=== PATIENT | female | born 1980 | race Caucasian/White ===

== ENCOUNTER 2024-05-09 17:30 | Inpatient (IN) | payer BC, OTHER ==
[~2024-05-09] VITALS: Ht 157.5 cm; Wt 84.7 kg
[2024-05-09 19:53] LABS: Basophils # (auto) 0.1 10 ^3/uL (0-0.2); Basophils % (auto) 0.5 % (0.0-2.0); Eosinophils # (auto) 0 10 ^3/uL (0-0.8); Eosinophils % (auto) 0.2 % (0.0-7.0); Hematocrit 41.4 % (36.0-46.0); Hemoglobin 13.6 g/dL (12.2-16.2); Lymphocytes # (auto) 2.6 10 ^3/uL (0.4-5.4); Lymphocytes % (auto) 21.5 % (10.0-50.0); Mean Corpuscular Hemoglobin 26.7 pg (28.0-32.0); Mean Corpuscular Hgb Conc. 32.7 g/dL (32.0-36.0); Mean Corpuscular Volume 81.7 fL (80.0-100.0); Monocytes # (auto) 0.8 10 ^3/uL (0-1.3); Monocytes % (auto) 6.6 % (0.0-12.0); Neutrophils # (auto) 8.7 10 ^3/uL (1.6-8.6); Neutrophils % (auto) 71.2 % (37.0-80.0); Red Blood Cells 5.07 10^6/uL (4.0-5.20); Red Cell Distribution Width 13.7 % (11.8-14.3); White Blood Cell 12.2 10^3/uL (4.4-10.8)
[2024-05-09 20:40] LABS: Alanine Aminotransferase 14 U/L (7-40); Albumin 4.5 g/dL (3.2-4.8); Alkaline Phosphatase 66 U/L (46-116); Anion Gap 9 (5-15); Aspartate Aminotransferase < 8 U/L (13-40); BUN/Creatinine Ratio 12.5 (10.0-20.0); Blood Urea Nitrogen 12 mg/dL (9-23); Calcium 9.8 mg/dL (8.7-10.4); Carbon Dioxide 22 mmol/L (20-30); Chloride 106 mmol/L (98-107); Glucose 104 mg/dL (74-106); Potassium 3.8 mmol/L (3.5-5.1); Sodium 137 mmol/L (136-145)
[2024-05-09 20:41] LABS: Bilirubin, Total 1.5 mg/dL (0.2-1.0)
[2024-05-09] MEDS: SODIUM CHLORIDE 0.9% 1,000 ML IV ONE (22:21)
[2024-05-09] MEDS ORDERED: CIPROFLOXACIN 400MG/200ML 200 ML IV ONE (22:30)
[2024-05-09] MEDS ORDERED: metroNIDAZOLE 500MG/100ML 100 ML IV ONE (22:30)
[2024-05-09] MEDS ORDERED: ACETAMINOPHEN 325 MG TAB PO PRN (22:30)
[2024-05-09] MEDS: PANTOPRAZOLE 40 MG/10 ML VIAL INJ IV ONE (23:00)
[2024-05-09] MEDS: metroNIDAZOLE 500MG/100ML 100 ML IV ONE (23:00)
[2024-05-09] MEDS: fentaNYL CITRATE 100 MCG/2 ML VL IV ONE (23:00)
[2024-05-10] VITALS (9 sets, daily range): BP systolic 114–129; BP diastolic 57–87; PULSE 70–83; RESP 16–18; TEMP 97.9–98.4; O2SAT 93–100
[2024-05-10] MEDS: CIPROFLOXACIN 400MG/200ML 200 ML IV ONE (00:26)
[2024-05-10] MEDS: MORPHINE SULFATE INJ 2 MG/ml SYRG IV PRN (02:36)
[2024-05-10] MEDS: HYDROcodone-ACET 5/325MG TAB PO PRN (06:14)
[2024-05-10] MEDS: metroNIDAZOLE 500MG/100ML 100 ML IV SCH ×2 (06:18→13:29)
[2024-05-10 06:26] LABS: Alanine Aminotransferase 10 U/L (7-40); Alkaline Phosphatase 57 U/L (46-116); Anion Gap 8 (5-15); BUN/Creatinine Ratio 7.5 (10.0-20.0); Bilirubin, Total 1.7 mg/dL (0.2-1.0); Blood Urea Nitrogen 6 mg/dL (9-23); Calcium 9.2 mg/dL (8.5-10.1); Carbon Dioxide 22 mmol/L (20-30); Chloride 107 mmol/L (98-107); Glucose 99 mg/dL (74-106); Potassium 3.6 mmol/L (3.5-5.1); Sodium 137 mmol/L (136-145); Total Protein 6.4 g/dL (5.7-8.2)
[2024-05-10 06:30] LABS: Aspartate Aminotransferase < 8 U/L (13-40); Basophils # (auto) 0 10 ^3/uL (0-0.2); Basophils % (auto) 0.2 % (0.0-2.0); Eosinophils # (auto) 0 10 ^3/uL (0-0.8); Eosinophils % (auto) 0.2 % (0.0-7.0); Hematocrit 36.4 % (36.0-46.0); Hemoglobin 12.1 g/dL (12.2-16.2); Lymphocytes % (auto) 22.4 % (10.0-50.0); Mean Corpuscular Hemoglobin 27.5 pg (28.0-32.0); Mean Corpuscular Hgb Conc. 33.3 g/dL (32.0-36.0); Mean Corpuscular Volume 82.7 fL (80.0-100.0); Monocytes # (auto) 0.7 10 ^3/uL (0-1.3); Monocytes % (auto) 7.7 % (0.0-12.0); Neutrophils # (auto) 6.2 10 ^3/uL (1.6-8.6); Neutrophils % (auto) 69.5 % (37.0-80.0); Red Cell Distribution Width 13.9 % (11.8-14.3); White Blood Cell 8.9 10^3/uL (4.4-10.8)
[2024-05-10] MEDS ORDERED: cefTRIAXone 1GM/50ML D5W 50 ML IV SCH (09:00)
[2024-05-10] MEDS: CIPROFLOXACIN 400MG/200ML 200 ML IV SCH (10:27)
[2024-05-10 13:00] LABS: Hepatitis B Surface Antigen Negative (Negative)
[2024-05-10 13:20] LABS: Hepatitis A Ab IgM Negative
[2024-05-10 13:21] LABS: Hepatitis B Core IgM Negative
[2024-05-10 13:22] LABS: Hepatitis C Antibody Negative (Negative)
[2024-05-10] MEDS: ONDANSETRON HCL 4 MG/2 ML VIAL IV PRN (13:34)
[2024-05-10 14:33] LABS: Urine Bacteria None Seen /hpf (None Seen); Urine Blood Negative /uL (Negative); Urine Clarity Clear (Clear); Urine Color Light-Orange (Yellow); Urine Mucus FEW (None Seen); Urine Protein, UAD TRACE (Negative); Urine Specific Gravity 1.024 (1.001-1.035); Urine Urobilinogen Normal (Negative); Urine WBC 1 /hpf (0 - 5)
[2024-05-10] MEDS: FAMOTIDINE (10MG/ML) 2ML VL IV SCH (21:46)
[2024-05-11] VITALS (8 sets, daily range): BP systolic 99–129; BP diastolic 54–86; PULSE 61–76; RESP 16–20; TEMP 97.8–98.3; O2SAT 93–99
[2024-05-11 07:51] LABS: Basophils # (auto) 0 10 ^3/uL (0-0.2); Basophils % (auto) 0.3 % (0.0-2.0); Eosinophils # (auto) 0.1 10 ^3/uL (0-0.8); Eosinophils % (auto) 0.9 % (0.0-7.0); Hematocrit 38.1 % (36.0-46.0); Hemoglobin 12.6 g/dL (12.2-16.2); Lymphocytes # (auto) 1.6 10 ^3/uL (0.4-5.4); Lymphocytes % (auto) 18.4 % (10.0-50.0); Mean Corpuscular Hemoglobin 27.2 pg (28.0-32.0); Mean Corpuscular Hgb Conc. 33.1 g/dL (32.0-36.0); Mean Corpuscular Volume 82.1 fL (80.0-100.0); Monocytes # (auto) 0.8 10 ^3/uL (0-1.3); Monocytes % (auto) 8.8 % (0.0-12.0); Neutrophils # (auto) 6.2 10 ^3/uL (1.6-8.6); Neutrophils % (auto) 71.6 % (37.0-80.0); Nucleated Red Blood Cells % 0.1 %; Red Blood Cells 4.63 10^6/uL (4.0-5.20); Red Cell Distribution Width 13.8 % (11.8-14.3); White Blood Cell 8.7 10^3/uL (4.4-10.8)
[2024-05-11 08:03] LABS: Chloride 105 mmol/L (98-107); Potassium 3.3 mmol/L (3.5-5.1); Sodium 138 mmol/L (136-145)
[2024-05-11 08:04] LABS: Anion Gap 9 (5-15); Calcium 9.3 mg/dL (8.5-10.1); Carbon Dioxide 24 mmol/L (20-30)
[2024-05-11 08:09] LABS: Glucose 92 mg/dL (74-106)
[2024-05-11 08:10] LABS: BUN/Creatinine Ratio 7.8 (10.0-20.0); Blood Urea Nitrogen 7 mg/dL (9-23)
[2024-05-11] MEDS: POTASSIUM EFFERVESENT TAB 25 MEQ PO ONE (13:54)
[2024-05-11] MEDS: ONDANSETRON HCL 4 MG/2 ML VIAL IV ONE (16:20)
[2024-05-11] MEDS: METOCLOPRAMIDE HCL 5MG/ml INJ 2ml VIAL IV SCH (20:33)
[2024-05-12 05:00] VITALS: BP 112/60; PULSE 64; RESP 17; TEMP 98.1; O2SAT 98
[2024-05-12 06:09] LABS: Basophils # (auto) 0 10 ^3/uL (0-0.2); Basophils % (auto) 0.2 % (0.0-2.0); Eosinophils # (auto) 0.1 10 ^3/uL (0-0.8); Eosinophils % (auto) 1.7 % (0.0-7.0); Hematocrit 37.5 % (36.0-46.0); Hemoglobin 12.3 g/dL (12.2-16.2); Lymphocytes # (auto) 1.8 10 ^3/uL (0.4-5.4); Lymphocytes % (auto) 31.5 % (10.0-50.0); Mean Corpuscular Hemoglobin 27.1 pg (28.0-32.0); Mean Corpuscular Hgb Conc. 32.9 g/dL (32.0-36.0); Mean Corpuscular Volume 82.4 fL (80.0-100.0); Monocytes # (auto) 0.5 10 ^3/uL (0-1.3); Monocytes % (auto) 9.4 % (0.0-12.0); Neutrophils # (auto) 3.3 10 ^3/uL (1.6-8.6); Neutrophils % (auto) 57.2 % (37.0-80.0); Red Blood Cells 4.54 10^6/uL (4.0-5.20); Red Cell Distribution Width 13.5 % (11.8-14.3); White Blood Cell 5.7 10^3/uL (4.4-10.8)
[2024-05-12 06:24] LABS: Anion Gap 8 (5-15); Calcium 9.1 mg/dL (8.7-10.4); Carbon Dioxide 27 mmol/L (20-30); Chloride 104 mmol/L (98-107); Potassium 3.6 mmol/L (3.5-5.1); Sodium 139 mmol/L (136-145)
[2024-05-12 06:30] LABS: BUN/Creatinine Ratio 8.3 (10.0-20.0); Blood Urea Nitrogen 8 mg/dL (9-23); Glucose 84 mg/dL (74-106)
[2024-05-12 08:00] VITALS: PULSE 69; RESP 18; O2SAT 99
[2024-05-12 08:17] VITALS: BP 117/76; PULSE 66; RESP 20; TEMP 98.4; O2SAT 94
[2024-05-12 12:14] VITALS: BP 124/88; PULSE 68; RESP 16; TEMP 98.5; O2SAT 96
[2024-05-12] MEDS ORDERED: CIPR-173 PO (13:06)
[2024-05-12] MEDS ORDERED: METR-344 PO (13:06)
[2024-05-12 16:25] VITALS: BP 136/83; PULSE 69; RESP 20; TEMP 98.3; O2SAT 100
[2024-05-12] MEDS ORDERED: ONDA-155 PO (16:25)
== END 2024-05-12 19:00 | disposition home or self-care (01) | DRG 379 ==
LOC: ER 17:30 → OVERFLOW 22:50 → CENTRAL 05-10 01:52
PROVIDERS: ADMIT Internal Medicine; ATTEND Internal Medicine
DX: K57.31 Diverticulosis of large intestine without perforation or abscess with bleeding (principal); K44.9 Diaphragmatic hernia without obstruction or gangrene; E66.9 Obesity, unspecified; G62.2 Polyneuropathy due to other toxic agents; T45.1X5A Adverse effect of antineoplastic and immunosuppressive drugs, initial encounter; K75.81 Nonalcoholic steatohepatitis (NASH); Z91.040 Latex allergy status; Z90.711 Acquired absence of uterus with remaining cervical stump; Z90.721 Acquired absence of ovaries, unilateral; Z85.43 Personal history of malignant neoplasm of ovary; Z83.3 Family history of diabetes mellitus; Z80.49 Family history of malignant neoplasm of other genital organs; Z68.34 Body mass index [BMI] 34.0-34.9, adult; Y92.89 Other specified places as the place of occurrence of the external cause
CPT/HCPCS: 36415; 74176; 76705; 76830; 76856; 80048; 80053; 80074; 81001; 83605; 83690; 84484; 84702; 85025; 86304; 86703; G0378; J2405; J2470; J3490